=== PATIENT | male | born 1960 | race African-American/Black ===

== ENCOUNTER 2017-07-04 00:36 | Observation (INO) | payer OTHER ==
[2017-07-04] MEDS ORDERED: Naloxone HCl 2 mg/2 ml Syringe ONE (00:37)
[2017-07-04 01:06] LABS: Hemoglobin 16.2 g/dL (14.0-18.0); Mean Corpuscular HGB CONC 33.9 g/dL (32.0-36.0); Red Blood Cell (RBC) Count 4.37 mill/uL (4.70-6.10); White Blood Cell (WBC) Count 7.6 thou/uL (4.8-10.8)
[2017-07-04 01:15] LABS: CK (CPK) 96 U/L (30-200); Lipase 46 U/L (8-78)
[2017-07-04 01:17] LABS: ALT (SGPT) 52 U/L (8-55); AST (SGOT) 73 U/L (5-34); Albumin 3.6 g/dL (3.5-5.0); Alcohol 198 mg/dL (Less than 10); Alkaline Phosphatase 100 U/L (40-150); Anion Gap 13 mmol/L (10-20); BUN (Urea Nitrogen) 7 mg/dL (8.4-25.7); Bilirubin, Total 0.5 mg/dL (0.2-1.2); Calc. Creatinine Clearance 0 mL/min (70-130); Carbon Dioxide 23 mmol/L (22-29); Chloride 103 mmol/L (98-107); Estimated GFR-MDRD Greater than 90; Globulin 4.3 g/dL (2.4-3.5); Glucose 118 mg/dL (70-105); Potassium 3.8 mmol/L (3.5-5.1); Protein, Total 7.9 g/dL (6.0-8.3); Salicylate Less than 8.0 mg/dL (15.0-30.0); Sodium 135 mmol/L (136-145)
[2017-07-04 01:18] LABS: Lactic Acid 1.2 mmol/L (0.5-2.2)
[2017-07-04] MEDS ORDERED: Lorazepam 2 MG/ML VIAL ONE ×2 (01:20→08:54)
[2017-07-04 01:24] LABS: Eosinophils 3 % (0-10); Lymphocytes 43 % (21-51); MDiff Complete? YES; Macrocytosis SLIGHT = 6-15 cells (100X) (0-5/hpf); Mean Platelet Volume 9.2 fL (7.4-10.4); Monocytes 4 % (0-10); Neutrophil 50 % (42-75); Platelet Clumps SLIGHT; Platelet Count 139 thou/uL (130-400)
[2017-07-04 01:25] LABS: CKMB 1.4 ng/mL (0-6.6); Troponin I Less than 0.010 ng/mL (< 0.028)
[2017-07-04 01:32] LABS: Bilirubin Negative (Negative); Blood, Urine Negative (Negative); Clarity CLEAR (Clear); Glucose, Urine (Dipstick) 100 mg/dL (Negative); Leukocyte Negative (Negative); Nitrite Negative (Negative); Protein, Urine (Dipstick) Negative (Neg-Trace); Specific Gravity, Urine 1.012 (1.002-1.036); Urobilinogen 0.2 mg/dL (0.2-1.0); pH, Urine 5.5 (5.0-9.0)
[2017-07-04 01:38] LABS: Base Excess-Venous -1.7 mmol/L (0 (+/- 2.5)); Bicarbonate (HCO3v) 25.2 mmol/L (1.0-85.0); CO2 Tension (PvCO2) 49.3 mmHg (41.0-51.0); Calcium, Ionized 1.02 mmol/L (1.12-1.32); Hemoglobin - Calc 16.7 g/dL (12.0-18.0); O2 Tension (PvO2) 37.6 mmHg (35.0-45.0); Potassium 4.1 mmol/L (3.4-4.7); T. Carbon Dioxide 26.7 mmol/L (1.0-85.0); pH (Venous) 7.317 (7.35-7.45)
[2017-07-04 01:46] LABS: Amphetamine Not Detected (NotDetected); Barbiturates Screen Not Detected (NotDetected); Benzodiazepine Screen Not Detected (NotDetected); Cocaine Metabolite Screen Not Detected (NotDetected); Medtox Control Line Valid? VALID (VALID); Medtox Reader # READER 4; Methadone Not Detected (NotDetected); Methamphetamine Not Detected (NotDetected); Opiate Screen Not Detected (NotDetected); Oxycodone Screen Not Detected (NotDetected); Phencyclidine (PCP) Detected (NotDetected); THC/Cannabinoid Screen Not Detected (NotDetected); Tricyclic Screen Not Detected (NotDetected)
[2017-07-04] MEDS ORDERED: Lorazepam 2 MG/ML VIAL SLOW IVP PRN (03:51)
[2017-07-04] MEDS ORDERED: Lorazepam 0.5 MG TAB PO PRN (03:51)
--- NOTE | 2017-07-04 05:36 | HP ---
DATE OF ADMISSION: 07/04/2017 TIME OF SERVICE: 0415. PRIMARY CARE PHYSICIAN: Unknown. The patient currently has a toxic and metabolic encephalopathy and this is his first visit here. We have no records. He is unable to tell me who his primary doctor i s. He is implied to be a full code until we talk to family members. CHIEF COMPLAINT: Overdose. HISTORY OF PRESENT ILLNESS: Mr. Angeles is a 57-year-old gentleman with an unknown past history who a pparently has access to olanzapine. EMS was called by the family as they felt that he had taken abou t 20 of his olanzapine 20 mg tablets. He was found on the porch without a shirt in the cool air and was somewhat obtunded. He was hypothermic on initial evaluation and transported here. He did smell like alcohol and does have a psychiatric history. Calculated [place] coma scale score was 9. In the ER he was given Narcan, Ativan and 1 liter normal saline, we were subsequently called for admi ssion. Mental status was improving, he was breathing okay, protecting his airway better. We were called to admit. PAST MEDICAL HISTORY: Unknown. PAST SURGICAL HISTORY: Unknown. HOME MEDICATIONS: Unknown. ALLERGIES: NKDA. FAMILY HISTORY: Not obtainable. SOCIAL HISTORY: Unknown, unsure of tobacco use. REVIEW OF SYSTEMS: A 10-point review of systems was attempted. The patient was too groggy to be abl e to answer questions. PHYSICAL EXAMINATION: VITAL SIGNS: Temperature is 93.7, pulse 81, blood pressure 191/102, respiratory rate 20, satting 94% on room air. GENERAL: He is sedate. He is not sedated. He is difficult to arouse. He does respond to some verb al, but most tactile stimuli. HEENT: Head is normocephalic and atraumatic. Pupils are 2 mm and minimally reactive. There is no b lown pupils. He has no wheeze, rales or rhonchi. Mucous membranes are moist. There is no visible l esion or thrush. NECK: Supple. He has no lymphadenopathy, no JVD. No thyromegaly. He had normal carotid upstrokes. I did not appreciate any bruits. LUNGS: Clear. No wheezing, rales or rhonchi. There is good air movement. Symmetrical chest excurs ion. CARDIOVASCULAR: Normal S1, S2. He does have a faint holosystolic murmur versus a quiet systolic eje ction murmur that I can distinguish. These appear to be at the right upper sternal border. ABDOMEN: Soft. It is nontender, nondistended, no mass or organomegaly. EXTREMITIES: No cyanosis, clubbing with trace edema in the bilateral extremities. SKIN: Warm, moist and well perfused. No rashes, no lesions, no jaundice. MUSCULOSKELETAL: Large joints appear normal. No evidence of inflammation or palpable effusions. LABORATORY DATA: Sodium 135, potassium 3.8, chloride 103, bicarbonate 23, BUN 7, creatinine 0.78, gl ucose of 118. Liver function normal except for ALT around 73. CBC showed a white count of 7.6, hemoglobin 16.2, hematocrit of 47.3, platelet count is 139,000. The re is a fairly normal differential with 56% bands, 43% lymphocytes. Chest x-ray, CT of the brain was negative. A CT scan of the chest with contrast was unrevealing. ASSESSMENT AND PLAN: 1. Intentional overdose with olanzapine. The patient was placed on suicide precautions with a sitte r. We will watch him over the next 6-12 hours as he awakens and is medically clear we will ask [facility] to evaluate. 2. Metabolic encephalopathy secondary to overdose. 3. Toxins of encephalopathy secondary to olanzapine overdose. No specific antidote necessary. We w ill support him both respiratory and cardiac standpoint while these work their way out of the system.
[2017-07-04] MEDS ORDERED: D5 1/2 NS w/20 mEq KCL 1,000 ML ONE (06:43)
[2017-07-04] MEDS ORDERED: Acetaminophen 325 MG TAB PO PRN (07:53)
[2017-07-04] MEDS ORDERED: Ondansetron ODT 4 MG TAB PO PRN (07:53)
[2017-07-04] MEDS ORDERED: Dextrose 5% in Water 1,000 ML IV PRN (07:53)
[2017-07-04] MEDS ORDERED: Ondansetron HCl/PF 4 MG/2 ML Vial IVP PRN (07:53)
[2017-07-04] MEDS ORDERED: HumaLOG 300 UNITS/3 ML VIAL SC PRN (07:53)
[2017-07-04] MEDS ORDERED: Dextrose 50% Abboject 50 ML SYRINGE SLOW IVP PRN (07:53)
--- NOTE | 2017-07-04 08:03 | RAD ---
PORTABLE CHEST: HISTORY: Mental status change. FINDINGS/IMPRESSION: Mild cardiomegaly. Mild vascular engorgement. No focal infiltrate or significant effusion. POS: [facility]
--- NOTE | 2017-07-04 09:19 | CT ---
PRELIMINARY REPORT/[facility]/EMERGENTY AFTER-HOURS PROCEDURE CT Head Without Intravenous Contrast CLINICAL HISTORY: 57 years old, male; Pain; Headache; Patient HX: Additional history obtained from ems, called ems by wilian mccracken , decreased responsiveness. Ems states sitting on porch limited responsiveness. Dstick wnl. No signs of trauma. Outside w/ shirt off. Clinically smelled of ETOH per ems. No rashes. Reported by alber jaqueline to ems concern to taking x20 olanzapine. Prior mhmr history. Limited ros/hpi. ; Additional info: Patient was given ativan to help with agitation. TECHNIQUE: Axial computed tomography images of the head/brain without intravenous contrast. COMPARISON: No relevant prior studies available. FINDINGS: No definite acute skull fracture. Moderate mucosal thickening in the left maxillary sinus. Included p aranasal sinuses otherwise appear essentially clear. No acute intracranial hemorrhage or mass effect. Ventricle size is normal for age. There is mild, relatively symmetrical decreased attenuation in the periventricular white matter, like ly from microvascular disease. No definite acute infarct by CT. MRI could be more sensitive/specific for an acute infarct if clinica lly indicated. IMPRESSION: No acute intracranial bleed or mass effect. Changes of microvascular disease. No definite acute infarct by CT, see above. Paranasal sinus findings as discussed above. Thank you for allowing us to participate in the care of your patient. Dictated and Authenticated by: Geoffrey Perez MD 07/04/2017 2:34 AM Central Time ([place] & [place]) FINAL REPORT CT BRAIN WITHOUT CONTRAST: I agree with the preliminary report given by [facility]. POS: OFF
[2017-07-04] MEDS: Famotidine/PF 20 mg/2ml Vial SLOW IVP SCH (15:04)
[2017-07-04] MEDS: Sodium Chloride 0.9% 1,000 ML IV SCH ×2 (15:07→15:13)
[2017-07-04] MEDS: hydrALAZINE 20 MG/ML VIAL SLOW IVP PRN ×2 (18:37→23:56)
[2017-07-04] MEDS: Pantoprazole 40 MG VIAL IVP SCH ×3 (22:30→23:56)
[2017-07-05] MEDS: Famotidine/PF 20 mg/2ml Vial SLOW IVP SCH (00:14)
[2017-07-05] MEDS: Sodium Chloride 0.9% 1,000 ML IV SCH (01:21)
--- NOTE | 2017-07-05 04:09 | PDOC.EVN ---
Event Note - Event Note Event Note: RN called - Patient has 2 medical records.
[2017-07-05] MEDS: Pantoprazole 40 MG VIAL IVP SCH (10:06)
[2017-07-05 13:09] VITALS: TEMP 98.9
--- NOTE | 2017-07-05 14:47 | DIS ---
DATE OF ADMISSION: 07/04/2017 DATE OF DISCHARGE: 07/05/2017 DISCHARGE DIAGNOSES: 1. Olanzapine overdose, resolving. 2. Toxic metabolic encephalopathy secondary to #1, resolving. 3. PCP abuse. 4. Alcohol abuse. CONSULTATIONS: [facility] service. PERTINENT LABORATORY AND X-RAY FINDINGS: Basic metabolic profile within normal limits. AST 73, ALT 52, alkaline phosphatase 100. BNP 21.2, total CK of 96, troponin negative x1. Albumin 3.6, lipase 4 6, TSH 1.76. CBC showed a MCV of 109. Urine drug screen dated 07/04/2017, positive for phencyclidin e. Positive for alcohol level 198. CT of the brain without contrast dated 07/04/2017 showed no acut e intracranial process. Chronic microvascular ischemic changes noted. Portable chest x-ray dated showed mild cardiomegaly without acute process. HOSPITAL COURSE: Patient was admitted to the telemetry unit after initially presenting with altered mental status in the context of suspected Zyprexa overdose. The patient followed by [facility] service, pr escribed Cymbalta and Zyprexa, apparently taking an unknown amount of Zyprexa, as the patient states she wanted to go to sleep. The patient was monitored on the telemetry unit and noted with sinus tach ycardia. Remaining essentially sleeping through the hospital stay for approximately 30 hours. The p atient was given IV fluids and general supportive measures and remained clinically stable throughout the hospital course. The patient medically stabilized and was evaluated by [facility] service, as patient is an established patient of this [facility] system. A safety plan was established with the patient before discharge and the patient clinically stable and ready for discharge on 07/05/2017. I examined the p atient at the time of discharge and reviewed lab test and followup instructions. The patient is agre eable for a discharge plan and ready for discharge, 07/05/2017. DISCHARGE MEDICATIONS: 1. Zyprexa. 2. Cymbalta. FOLLOWUP: Patient will follow up with [facility] service per [facility] instructions. CONDITION ON DISCHARGE: Stable. ACTIVITY: Ad alex. DIET: Heart healthy. CODE STATUS: FULL. DISPOSITION: Home, 07/05/2017.
[2017-07-05] MEDS: hydrALAZINE 20 MG/ML VIAL SLOW IVP PRN (15:58)
[2017-07-05 16:35] VITALS: BP 166/88
== END 2017-07-05 16:40 | disposition home or self-care (01) ==
LOC: ERS 00:36 → EDBD 00:36 → ERHOLD 02:35 → 2NO 12:42
PROVIDERS: ADMIT Internal Medicine Infectious Disease; ATTEND Internal Medicine Infectious Disease
DX: F16.10 Hallucinogen abuse, uncomplicated; F10.10 Alcohol abuse, uncomplicated; G92 Toxic encephalopathy; Z79.899 Other long term (current) drug therapy; T43.591A Poisoning by other antipsychotics and neuroleptics, accidental (unintentional), initial encounter
CPT/HCPCS: 36416; 51701; 70450; 71045; 80053; 80306; 80307; 81003; 82140; 82330; 82550; 82553; 82803; 83605; 83690; 83880; 84443; 84484; 85025; 93005; 96360; 96361; 96374; 96375; 96376; A4216; C9113; G0378; J0360; J2060; J2310

== ENCOUNTER 2017-09-07 17:48 | Inpatient (IN) | payer OTHER ==
[2017-09-07 18:47] LABS: #Eosinphils 0.1 thou/uL (0.0-0.7); #Lymphocytes 2.6 thou/uL (1.20-3.40); #Monocytes 0.7 thou/uL (0.11-0.59); #Neutrophils 5.8 thou/uL (1.40-6.50); %Basophils 0.2 % (0.0-1.0); %Eosinophils 0.8 % (0.0-10.0); %Monocytes 7.5 % (0.0-10.0); %Neutrophils 63.5 % (42.0-75.0); Hemoglobin 16.8 g/dL (14.0-18.0); Mean Corpuscular HGB CONC 34.5 g/dL (32.0-36.0); Mean Corpuscular Hemoglobin 37.3 pg (27.0-31.0); Mean Platelet Volume 8.8 fL (7.4-10.4); Platelet Count 111 thou/uL (130-400); RBC Distribution Width 12.5 % (11.5-14.5); White Blood Cell (WBC) Count 9.1 thou/uL (4.8-10.8)
[2017-09-07 19:01] LABS: ALT (SGPT) 31 U/L (8-55); AST (SGOT) 34 U/L (5-34); Albumin 3.5 g/dL (3.5-5.0); Alkaline Phosphatase 91 U/L (40-150); Anion Gap 13 mmol/L (10-20); BUN (Urea Nitrogen) 8 mg/dL (8.4-25.7); Bilirubin, Total 1.1 mg/dL (0.2-1.2); CK (CPK) 88 U/L (30-200); Calc. Creatinine Clearance 0 mL/min (70-130); Calcium 9.2 mg/dL (7.8-10.44); Carbon Dioxide 22 mmol/L (22-29); Chloride 100 mmol/L (98-107); Estimated GFR-MDRD Greater than 90; Globulin 4.6 g/dL (2.4-3.5); Glucose 172 mg/dL (70-105); Potassium 3.2 mmol/L (3.5-5.1); Protein, Total 8.1 g/dL (6.0-8.3); Sodium 132 mmol/L (136-145)
[2017-09-07 19:01] LABS: CKMB 1.4 ng/mL (0-6.6); Troponin I Less than 0.010 ng/mL (< 0.028)
[2017-09-07 19:14] LABS: Lipase 1199 U/L (8-78)
--- NOTE | 2017-09-07 19:28 | RAD ---
ABDOMEN TWO VIEW WITH A ONE VIEW CHEST X-RAY 09/07/17 HISTORY: Sharp chest pain, abdominal pain, and back pain. COMPARISON: Chest radiograph 07/04/17. FINDINGS: The vascular engorgement has improved. No focal air space consolidation, pneumothorax or effusion. Th e aortic contour is normal. Height loss of L2 vertebral body is similar. Evidence of old pelvic trauma. No dilated air filled loops of large or small bowel. IMPRESSION: No acute intrathoracic or intra-abdominal abnormality. POS: [facility]
[2017-09-07] MEDS ORDERED: Ondansetron ODT 4 MG TAB ONE (19:30)
--- NOTE | 2017-09-07 19:38 | ULT ---
ULTRASOUND RIGHT UPPER QUADRANT 09/07/17 HISTORY: Abdominal pain. COMPARISON: Ultrasound 2017. The visualized portions of the pancreas are unremarkable. Common bile duct is normal. Increased hepat ic echotexture. No cholelithiasis or pericholecystic fluid. Gallbladder wall thickness is normal. Right kidney measures 10 x 5.2 x 5.4 cm without mass, hydronephrosis or abnormal calcifications. IMPRESSION: Increased hepatic echotexture suggesting steatosis. No evidence of cholecystitis. POS: [facility]
[2017-09-07 19:45] LABS: Bilirubin Small (Negative); Blood, Urine Negative (Negative); Clarity CLEAR (Clear); Glucose, Urine (Dipstick) >=1000 mg/dL (Negative); Leukocyte Negative (Negative); Nitrite Negative (Negative); Protein, Urine (Dipstick) 100 mg/dL (Neg-Trace); Specific Gravity, Urine 1.043 (1.002-1.036); Urobilinogen > or = 8.0 mg/dL (0.2-1.0)
[2017-09-07 19:48] LABS: Bacteria/HPF None Seen HPF (None Seen); Hyaline Casts/LPF 0-3 HYALINE CAST LPF (0-3 Hyaline); RBC/HPF 0-3 HPF (0-3); Squamous Epithelial 0-3 HPF (0-3); WBC/HPF 0-3 HPF (0-3)
[2017-09-07] MEDS ORDERED: MULTIVITAMINS IV ONE (20:45)
[2017-09-07] MEDS ORDERED: FOLIC ACID IV ONE (20:45)
[2017-09-07] MEDS ORDERED: THIAMINE HCL IV ONE (20:45)
[2017-09-07] MEDS ORDERED: [UNRECOGNIZED DRUG - OTHER] IV ONE (20:45)
[2017-09-07] MEDS ORDERED: Ondansetron HCl/PF 4 MG/2 ML Vial IVP PRN (21:19)
[2017-09-07] MEDS ORDERED: Ondansetron ODT 4 MG TAB SL PRN (21:19)
[2017-09-07] MEDS: Sodium Chloride 0.9% 1,000 ML IV SCH (21:33)
[2017-09-07 21:59] VITALS: BMI 34.1
[2017-09-08] MEDS: Sodium Chloride 0.9% 1,000 ML IV SCH (04:03)
[2017-09-08 05:12] LABS: ALT (SGPT) 24 U/L (8-55); AST (SGOT) 27 U/L (5-34); Alkaline Phosphatase 77 U/L (40-150); Anion Gap 10 mmol/L (10-20); BUN (Urea Nitrogen) 7 mg/dL (8.4-25.7); Bilirubin, Total 1.5 mg/dL (0.2-1.2); Calc. Creatinine Clearance 157 mL/min (70-130); Calcium 8.2 mg/dL (7.8-10.44); Carbon Dioxide 23 mmol/L (22-29); Chloride 103 mmol/L (98-107); Estimated GFR-MDRD Greater than 90; Globulin 3.8 g/dL (2.4-3.5); Glucose 147 mg/dL (70-105); Potassium 3.7 mmol/L (3.5-5.1); Protein, Total 6.8 g/dL (6.0-8.3); Sodium 132 mmol/L (136-145)
--- NOTE | 2017-09-08 05:26 | HP ---
CHIEF COMPLAINT: Abdominal pain. HISTORY OF PRESENT ILLNESS: Patient is a 57-year-old male with past medical history of alcohol abuse , chronic hepatitis C, polysubstance abuse, and a history of bipolar, who presented to the hospital w ith complaints of abdominal pain. Patient stated that he has been having abdominal pain for the past 3 days. Patient states that he took an Aleve. He took 2 pills, which did not help his pain. He to ok Maalox and then Pepto-Bismol still did not help this pain. Patient stated he was nauseated; howev er, only had some dry heaving. No vomiting, no diarrhea. Patient stated that he has been trying to eat; however, has not been able to eat or keep anything down. Patient stated that he normally drinks a 32 ounce of beer every 2 days. He tried to drink it yesterday; however, was unable to finish his first beer. Patient states that his pain was around the epigastric area was a sharp pain, which radi ated to his back. Denies any fevers or chills. Denies any chest pressure or shortness of breath. PAST MEDICAL HISTORY: 1. Chronic alcohol use, hepatitis C. 2. Bipolar disorder. 3. Polysubstance abuse. 4. Patient has had also history of pancreatitis and hypomagnesemia in the past. PAST SURGICAL HISTORY: Right wrist surgery. ALLERGIES: He has no known drug allergies. FAMILY HISTORY: Positive for heart disease and diabetes. CURRENT MEDICATIONS: This is taken from his last discharge summary. Patient's discharge medications per reconciliation is patient takes thiamine to 100 mg daily, folic acid 1 daily, Pepcid 20 mg b.i.d ., multivitamin 1 daily. SOCIAL HISTORY: Patient states that he smokes a pack a day. Drinks about, he told me a 32 ounces ev raghavendra 2 days and said he abuses marijuana, however, states that he has not used any cocaine. REVIEW OF SYSTEMS: All negative except for the ones mentioned above in the HPI. PHYSICAL EXAMINATION: VITAL SIGNS: Temperature of 98.2, 69, 20, 94% on room air, blood pressure 181/89. GENERAL: He is awake, alert, oriented x3, does not appear in any distress. HEENT: Normocephalic, atraumatic. Patient's voice appears to be very hoarse. As stated oral mucous membranes are a little bit on the raw stock drier tender side. CARDIOVASCULAR: S1, S2 present. No murmurs, rubs, or gallops. LUNGS: Clear per auscultation, rhonchi, wheezes noted. ABDOMEN: Soft, bowel sounds present x2. Mild tenderness upon palpation to epigastric area and right upper quadrant and also bilateral lower quadrant pain. EXTREMITIES: No edema. Pedal pulses are present x2. NEUROLOGIC: Alert and oriented x3. No focal deficits noted. PSYCHIATRIC: His mood and affect appears to be normal. LABORATORY DATA: Results are as the following: He has a white count of 9.1, hemoglobin of 16.8, hem atocrit of 48.6. His platelets are 111. Chemistry: Sodium of 132, potassium of 3.2. His bicarbona te is 13, BUN of 8, creatinine of 0.7. His LFTs are completely normal. His mag is 1.8. Alkaline ph osphatase are also normal. Troponin x1 is negative and his lipase is 1199. Patient had a right uppe r quadrant ultrasound done in the ER, which indicated no acute cholecystitis or just indicated increa se hepatic echotexture suggesting of steatosis. Patient also had an acute abdominal series, which in dicated no acute intrathoracic or intra-abdominal abnormalities. ASSESSMENT AND PLAN: Patient is a 57-year-old male who presents to the hospital with abdominal pain. 1. Acute pancreatitis. Patient has classic symptoms of epigastric pain radiating to his back, has b een also having some nausea. We will start the patient on some pain meds also IV hydration. We will check a CRP. Keep patient n.p.o. for now. The patient has been educated on not drinking alcohol. 2. Hypokalemia. Patient is currently getting a banana bag. We will continue to monitor. 3. Alcohol use or abuse. We will put patient on the ASE protocol and also order p.r.n. Ativan just in case. 4. Thrombocytopenia appears that is patient's baseline. I will continue to monitor. 5. Deep venous thrombosis prophylaxis. We will put patient on subcutaneous heparin. Also, we will monitor platelets since patient's baseline is low, but patient has been notified about the liver arana ges and has been advised to stop drinking alcohol.
[2017-09-08 05:55] LABS: #Eosinphils 0.1 thou/uL (0.0-0.7); #Lymphocytes 3.4 thou/uL (1.20-3.40); #Monocytes 0.6 thou/uL (0.11-0.59); #Neutrophils 4.4 thou/uL (1.40-6.50); %Basophils 0.5 % (0.0-1.0); %Eosinophils 1.6 % (0.0-10.0); %Lymphocytes 39.9 % (21.0-51.0); %Monocytes 6.7 % (0.0-10.0); %Neutrophils 51.2 % (42.0-75.0); Hemoglobin 15.3 g/dL (14.0-18.0); MDiff Complete? YES; Mean Corpuscular HGB CONC 33.9 g/dL (32.0-36.0); Mean Corpuscular Hemoglobin 36.7 pg (27.0-31.0); Mean Platelet Volume 8.1 fL (7.4-10.4); PLT Morphology Comment Appears Decreased; Platelet Clumps MARKED; Platelet Count 101 thou/uL (130-400); RBC Distribution Width 12.7 % (11.5-14.5); Red Blood Cell (RBC) Count 4.18 mill/uL (4.70-6.10); White Blood Cell (WBC) Count 8.5 thou/uL (4.8-10.8)
[2017-09-08] MEDS ORDERED: Ondansetron HCl/PF 4 MG/2 ML Vial IVP PRN (07:03)
[2017-09-08] MEDS ORDERED: Loratadine 10 MG TAB PO PRN (07:03)
[2017-09-08] MEDS ORDERED: Lorazepam 1 MG TAB PO PRN (07:03)
[2017-09-08] MEDS ORDERED: Artificial Tears 18 DROP/0.9 ML EA EYE PRN (07:03)
[2017-09-08] MEDS ORDERED: Loperamide HCl 2 MG CAP PO PRN (07:03)
[2017-09-08] MEDS ORDERED: Ondansetron ODT 4 MG TAB PO PRN (07:03)
[2017-09-08] MEDS ORDERED: Senokot 8.6 MG TAB PO PRN (07:03)
[2017-09-08] MEDS ORDERED: Acetaminophen 325 MG TAB PO PRN (07:03)
[2017-09-08] MEDS ORDERED: Chloraseptic Spray 180 ml Bottle PO PRN (07:03)
[2017-09-08] MEDS ORDERED: Eucerin (Mineral Oil/Petrolatum,White) 30 gm Jar TOP PRN (07:03)
[2017-09-08] MEDS ORDERED: Lorazepam 2 MG/ML VIAL SLOW IVP PRN (07:03)
[2017-09-08] MEDS ORDERED: Diabetic Tussin 200 MG/10 ML UDCUP PO PRN (07:03)
[2017-09-08] MEDS ORDERED: hydrALAZINE 20 MG/ML VIAL SLOW IVP PRN (07:03)
[2017-09-08] MEDS ORDERED: Mag-Al 1200 mg/1200 mg/30 ML UDCUP PO PRN (07:03)
[2017-09-08] MEDS ORDERED: Sodium Chloride 0.65% Nasal 44 ML BOT EA NARE PRN (07:03)
[2017-09-08] MEDS ORDERED: Milk Of Magnesia 30 ML UDCUP PO PRN (07:03)
[2017-09-08] MEDS ORDERED: HYDROcodone/Acetaminophen 5/325 mg Tablet PO PRN (07:03)
[2017-09-08] MEDS ORDERED: Morphine 4 MG/ML Carpuject SLOW IVP PRN (07:04)
[2017-09-08] MEDS: Folic Acid 1 MG TAB PO SCH (08:25)
[2017-09-08] MEDS: Nicotine 21 MG PATCH TD SCH (08:25)
[2017-09-08] MEDS ORDERED: Heparin 5,000 UNITS/ML VIAL SC SCH (09:00)
[2017-09-08] MEDS: Famotidine/PF 20 mg/2ml Vial SLOW IVP SCH (09:21)
--- NOTE | 2017-09-08 09:29 | PDOC.PN ---
- Subjective Encounter Start Date: 09/08/17 Encounter Start Time: 08:20 -: old records requested/rev Patient seen and examined for pancreatitis, he has epigastric abdominal pain, No overnight events - Objective Resuscitation Status: Resuscitation Status FULL:Full Resuscitation MAR Reviewed: Yes Vital Signs & Weight: Vital Signs (12 hours) Temp Pulse Resp BP Pulse Ox 09/08/17 07:56 97.6 F 71 18 159/77 H 93 L 09/08/17 04:00 97.9 F 73 16 136/81 93 L 09/08/17 00:00 97.9 F 67 16 152/81 H 93 L Weight Weight 205 lb 1.6 oz I&O: 09/07/17 09/08/17 09/09/17 06:59 06:59 06:59 Intake Total 1219 Output Total 300 Balance 919 Result Diagrams: 09/08/17 04:02 09/08/17 04:02 Radiology Reviewed by me: Yes (us abdomen) Phys Exam - Physical Examination Constitutional: NAD HEENT: PERRLA, moist MMs, sclera anicteric Neck: no JVD, supple Respiratory: no wheezing, no rales, no rhonchi Cardiovascular: RRR, no significant murmur, no rub Gastrointestinal: soft, non-tender, no distention, positive bowel sounds Musculoskeletal: no edema, pulses present Neurological: non-focal, normal sensation, moves all 4 limbs Lymphatic: no nodes Psychiatric: normal affect, A&O x 3 Skin: no rash, normal turgor Dx/Plan (1) Pancreatitis, alcoholic, acute Code(s): K85.2 - ALCOHOL INDUCED ACUTE PANCREATITIS * DO NOT USE * Status: Acute Qualifiers: Comment: (2) Hypokalemia Code(s): E87.6 - HYPOKALEMIA Status: Acute (3) Hyponatremia Code(s): E87.1 - HYPO-OSMOLALITY AND HYPONATREMIA Status: Acute (4) Anxiety and depression Code(s): F41.9 - ANXIETY DISORDER, UNSPECIFIED; F32.9 - MAJOR DEPRESSIVE DISORDER, SINGLE EPISODE, UNSPECIFIED Status: Chronic (5) Bipolar disorder Code(s): F31.9 - BIPOLAR DISORDER, UNSPECIFIED Status: Chronic (6) Chronic hepatitis C Code(s): B18.2 - CHRONIC VIRAL HEPATITIS C Status: Chronic (7) Macrocytosis Code(s): D75.89 - OTHER SPECIFIED DISEASES OF BLOOD AND BLOOD-FORMING ORGANS Status: Chronic (8) Obesity (BMI 30.0-34.9) Code(s): E66.9 - OBESITY, UNSPECIFIED Status: Chronic (9) Polysubstance abuse Code(s): F19.10 - OTHER PSYCHOACTIVE SUBSTANCE ABUSE, UNCOMPLICATED Status: Chronic (10) Thrombocytopenia Code(s): D69.6 - THROMBOCYTOPENIA, UNSPECIFIED Status: Chronic - Plan cont current plan of care * Ice chips ok * keep NPO * continue IVF 1/2 NS with KCL at 125 ml per hour * continue morphin for pain control * tomorrow will repeat labs and then decide about diet advancement * counselled to avoid alcohol abuse * medication reviewed as below * symptomatic treatment. * watch for alcohol withdrawl Review of Systems - Review of Systems Constitutional: negative: fever, chills, sweats, weakness, malaise, other Eyes: negative: Pain, Vision Change, Conjunctivae Inflammation, Eyelid Inflammation, Redness, Other ENT: negative: Ear Pain, Ear Discharge, Nose Pain, Nose Discharge, Nose Congestion, Mouth Pain, Mouth Swelling, Throat Pain, Throat Swelling, Other Respiratory: negative: Cough, Dry, Shortness of Breath, Hemoptysis, SOB with Excertion, Pleuritic Pain, Sputum, Wheezing Cardiovascular: negative: chest pain, palpitations, orthopnea, paroxysmal nocturnal dyspnea, edema, light headedness, other Gastrointestinal: Abdominal Pain. negative: Nausea, Vomiting, Diarrhea, Constipation, Melena, Hematochezia, Other Genitourinary: negative: Dysuria, Frequency, Incontinence, Hematuria, Retention , Other Musculoskeletal: negative: Neck Pain, Shoulder Pain, Arm Pain, Back Pain, Hand Pain, Leg Pain, Foot Pain, Other Skin: negative: Rash, Lesions, Thiago, Bruising, Other - Medications/Allergies Allergies/Adverse Reactions: Allergies Allergy/AdvReac Type Severity Reaction Status Date / Time No Known Drug Allergies Allergy Verified 06/03/16 00:28 Medications: Current Medications Acetaminophen (Tylenol) 650 mg PO Q4H PRN PRN Reason: Headache/Fever or Mild Pain Hydrocodone Bitart/Acetaminophen ([place] 5/325) 1 tab PO Q4H PRN PRN Reason: Moderate Pain (4-6) Al Hydroxide/Mg Hydroxide (Maalox) 15 ml PO Q4H PRN PRN Reason: Heartburn or Indigestion Artificial Tears (Tears Naturale) 0 drop EA EYE PRN PRN PRN Reason: Dry Eyes Famotidine (Pepcid) 20 mg SLOW IVP DAILY [facility] Last Admin: 09/08/17 09:21 Dose: 20 mg Folic Acid (Folvite) 1 mg PO DAILY [facility] Last Admin: 09/08/17 08:25 Dose: 1 mg Guaifenesin (Robitussin Sf) 200 mg PO Q4H PRN PRN Reason: Cough Hydralazine HCl (Apresoline) 10 mg SLOW IVP Q4H PRN PRN Reason: Systolic BP > 180 Thiamine HCl 100 mg/ Sodium (Chloride) 51 mls @ 100 mls/hr IVPB Q24HR [facility] Last Admin: 09/08/17 09:21 Dose: 51 mls Loperamide HCl (Imodium) 2 mg PO PRN PRN PRN Reason: Diarrhea/Loose Stools Loratadine (Claritin) 10 mg PO DAILYPRN PRN PRN Reason: Sinus Symptoms Lorazepam (Ativan) 1 mg PO Q4H PRN PRN Reason: Anxiety/Agitation Lorazepam (Ativan) 1 mg SLOW IVP Q4H PRN PRN Reason: Anxiety/Agitation Magnesium Hydroxide (Milk Of Magnesium) 30 ml PO DAILYPRN PRN PRN Reason: Constipation Mineral Oil/White Petrolatum (Eucerin Cream) 0 gm TOP BIDPRN PRN PRN Reason: Dry Skin Morphine Sulfate (Morphine) 4 mg SLOW IVP Q4H PRN PRN Reason: Pain Last Admin: 09/08/17 08:29 Dose: 4 mg Nicotine (Nicoderm Patch) 21 mg TD DAILY [facility] Last Admin: 09/08/17 08:25 Dose: Not Given Ondansetron HCl (Zofran Odt) 4 mg PO Q6H PRN PRN Reason: Nausea/Vomiting Ondansetron HCl (Zofran) 4 mg IVP Q6H PRN PRN Reason: Nausea/Vomiting Phenol (Chloraseptic [place] 180 Ml Bot) 0 ml PO PRN PRN PRN Reason: Sore Throat Last Admin: 09/08/17 09:20 Dose: 1 spr Senna (Senokot) 2 tab PO HSPRN PRN PRN Reason: Constipation Sodium Chloride ([place] Nasal [place] 0.65%) 0 ml EA NARE QIDPRN PRN PRN Reason: Nasal Congestion Sodium Chloride (Flush - Normal Saline) 10 ml IVF Q12HR [facility] Last Admin: 09/08/17 08:25 Dose: Not Given Sodium Chloride (Flush - Normal Saline) 10 ml IVF PRN PRN PRN Reason: Saline Flush
[2017-09-08] MEDS: 1/2 NS w/KCL 20 mEq 1,000 ML IV SCH ×3 (11:09→19:26)
[2017-09-09] MEDS: 1/2 NS w/KCL 20 mEq 1,000 ML IV SCH (03:29)
[2017-09-09 04:38] LABS: ALT (SGPT) 24 U/L (8-55); AST (SGOT) 34 U/L (5-34); Alkaline Phosphatase 75 U/L (40-150); Anion Gap 9 mmol/L (10-20); BUN (Urea Nitrogen) 9 mg/dL (8.4-25.7); Bilirubin, Total 1.8 mg/dL (0.2-1.2); CRP (Inflammatory) 0.62 mg/dL (= or < 0.5); Calc. Creatinine Clearance 160 mL/min (70-130); Calcium 8.5 mg/dL (7.8-10.44); Carbon Dioxide 23 mmol/L (22-29); Chloride 102 mmol/L (98-107); Estimated GFR-MDRD Greater than 90; Globulin 3.9 g/dL (2.4-3.5); Glucose 77 mg/dL (70-105); Magnesium 1.7 mg/dL (1.6-2.6); Phosphorus 2.8 mg/dL (2.3-4.7); Potassium 4.3 mmol/L (3.5-5.1); Protein, Total 6.9 g/dL (6.0-8.3); Sodium 130 mmol/L (136-145)
[2017-09-09 05:57] LABS: #Basophils 0.1 thou/uL (0.0-0.2); #Eosinphils 0.1 thou/uL (0.0-0.7); #Lymphocytes 2.9 thou/uL (1.20-3.40); #Monocytes 0.6 thou/uL (0.11-0.59); #Neutrophils 3.4 thou/uL (1.40-6.50); %Eosinophils 1.8 % (0.0-10.0); %Lymphocytes 41.2 % (21.0-51.0); %Monocytes 8.3 % (0.0-10.0); %Neutrophils 47.8 % (42.0-75.0); Hemoglobin 14.7 g/dL (14.0-18.0); MDiff Complete? YES; Macrocytosis SLIGHT = 6-15 cells (100X) (0-5/hpf); Mean Corpuscular HGB CONC 35.1 g/dL (32.0-36.0); Mean Corpuscular Hemoglobin 38.5 pg (27.0-31.0); Mean Platelet Volume 8.5 fL (7.4-10.4); PLT Morphology Comment PLT clumps seen-LOW; Platelet Clumps MODERATE; RBC Distribution Width 12.6 % (11.5-14.5); Red Blood Cell (RBC) Count 3.82 mill/uL (4.70-6.10)
[2017-09-09] MEDS: Sodium Chloride 0.9% 1,000 ML IV SCH ×2 (08:19→20:07)
[2017-09-09] MEDS: DULoxetine 60 MG CAP PO SCH (08:20)
[2017-09-09] MEDS: Cyanocobalamin (Vitamin B-12) 1,000 MCG TAB PO SCH (08:20)
[2017-09-09] MEDS: Folic Acid 1 MG TAB PO SCH (08:21)
[2017-09-09] MEDS: Multivitamin W/ Minerals 1 TAB PO SCH (08:22)
[2017-09-09] MEDS: Nicotine 21 MG PATCH TD SCH (08:23)
--- NOTE | 2017-09-09 08:50 | PDOC.PN ---
- Subjective Encounter Start Date: 09/09/17 Encounter Start Time: 08:00 Patient seen and examined for pancreatitis. No new complaints. No overnight events - Objective Resuscitation Status: Resuscitation Status FULL:Full Resuscitation MAR Reviewed: Yes Vital Signs & Weight: Vital Signs (12 hours) Temp Pulse Resp BP BP Pulse Ox 09/09/17 07:20 97.5 F L 62 16 163/78 H 93 L 09/09/17 04:08 97.8 F 65 18 152/79 H 152/79 H 92 L 09/09/17 00:25 98 F 65 18 171/81 H 93 L 09/09/17 00:02 171/81 H Weight Admit Weight 205 lb 1.6 oz Weight 205 lb 1.6 oz I&O: 09/08/17 09/09/17 09/10/17 06:59 06:59 06:59 Intake Total 1219 3077 Output Total 300 350 Balance 919 5997 Result Diagrams: 09/09/17 03:40 09/09/17 03:40 Phys Exam - Physical Examination Constitutional: NAD HEENT: PERRLA, moist MMs, sclera anicteric Neck: no JVD, supple Respiratory: no wheezing, no rales, no rhonchi Cardiovascular: RRR, no significant murmur, no rub Gastrointestinal: soft, non-tender, no distention, positive bowel sounds Musculoskeletal: no edema, pulses present Neurological: non-focal, normal sensation, moves all 4 limbs Psychiatric: normal affect, A&O x 3 Skin: no rash, normal turgor Dx/Plan (1) Pancreatitis, alcoholic, acute Code(s): K85.2 - ALCOHOL INDUCED ACUTE PANCREATITIS * DO NOT USE * Status: Acute Qualifiers: Comment: (2) Hypokalemia Code(s): E87.6 - HYPOKALEMIA Status: Acute (3) Hyponatremia Code(s): E87.1 - HYPO-OSMOLALITY AND HYPONATREMIA Status: Acute (4) Anxiety and depression Code(s): F41.9 - ANXIETY DISORDER, UNSPECIFIED; F32.9 - MAJOR DEPRESSIVE DISORDER, SINGLE EPISODE, UNSPECIFIED Status: Chronic (5) Bipolar disorder Code(s): F31.9 - BIPOLAR DISORDER, UNSPECIFIED Status: Chronic (6) Chronic hepatitis C Code(s): B18.2 - CHRONIC VIRAL HEPATITIS C Status: Chronic (7) Macrocytosis Code(s): D75.89 - OTHER SPECIFIED DISEASES OF BLOOD AND BLOOD-FORMING ORGANS Status: Chronic (8) Obesity (BMI 30.0-34.9) Code(s): E66.9 - OBESITY, UNSPECIFIED Status: Chronic (9) Polysubstance abuse Code(s): F19.10 - OTHER PSYCHOACTIVE SUBSTANCE ABUSE, UNCOMPLICATED Status: Chronic (10) Thrombocytopenia Code(s): D69.6 - THROMBOCYTOPENIA, UNSPECIFIED Status: Chronic - Plan cont current plan of care * change IVF NS at 75 ml per hour * advance diet as tolerated today * pt is improving * expecting discharge tomorrow * medication reviewed as below * symptomatic treatment * pain controlled * ambulate as tolerated. Review of Systems - Review of Systems ENT: negative: Ear Pain, Ear Discharge, Nose Pain, Nose Discharge, Nose Congestion, Mouth Pain, Mouth Swelling, Throat Pain, Throat Swelling, Other Respiratory: negative: Cough, Dry, Shortness of Breath, Hemoptysis, SOB with Excertion, Pleuritic Pain, Sputum, Wheezing Cardiovascular: negative: chest pain, palpitations, orthopnea, paroxysmal nocturnal dyspnea, edema, light headedness, other Gastrointestinal: negative: Nausea, Vomiting, Abdominal Pain, Diarrhea, Constipation, Melena, Hematochezia, Other Genitourinary: negative: Dysuria, Frequency, Incontinence, Hematuria, Retention , Other Musculoskeletal: negative: Neck Pain, Shoulder Pain, Arm Pain, Back Pain, Hand Pain, Leg Pain, Foot Pain, Other Skin: negative: Rash, Lesions, Thiago, Bruising, Other - Medications/Allergies Allergies/Adverse Reactions: Allergies Allergy/AdvReac Type Severity Reaction Status Date / Time No Known Drug Allergies Allergy Verified 06/03/16 00:28 Medications: Current Medications Acetaminophen (Tylenol) 650 mg PO Q4H PRN PRN Reason: Headache/Fever or Mild Pain Hydrocodone Bitart/Acetaminophen ([place] 5/325) 1 tab PO Q4H PRN PRN Reason: Moderate Pain (4-6) Al Hydroxide/Mg Hydroxide (Maalox) 15 ml PO Q4H PRN PRN Reason: Heartburn or Indigestion Artificial Tears (Tears Naturale) 0 drop EA EYE PRN PRN PRN Reason: Dry Eyes Cyanocobalamin (Vitamin B-12) 1,000 mcg PO DAILY [facility] Last Admin: 09/09/17 08:20 Dose: 1,000 mcg Duloxetine HCl (Cymbalta) 60 mg PO DAILY [facility] Last Admin: 09/09/17 08:20 Dose: 60 mg Famotidine (Pepcid) 20 mg SLOW IVP DAILY [facility] Last Admin: 09/08/17 09:21 Dose: 20 mg Folic Acid (Folvite) 1 mg PO DAILY [facility] Last Admin: 09/09/17 08:21 Dose: 1 mg Guaifenesin (Robitussin Sf) 200 mg PO Q4H PRN PRN Reason: Cough Hydralazine HCl (Apresoline) 10 mg SLOW IVP Q4H PRN PRN Reason: SBP GREATER THAN 160 Sodium Chloride (Normal Saline 0.9%) 1,000 mls @ 75 mls/hr IV .[id number] [facility] Last Admin: 09/09/17 08:19 Dose: 1,000 mls Iron/Minerals/Multivitamins (Theragran M) 1 tab PO DAILY [facility] Last Admin: 09/09/17 08:22 Dose: 1 tab Loperamide HCl (Imodium) 2 mg PO PRN PRN PRN Reason: Diarrhea/Loose Stools Loratadine (Claritin) 10 mg PO DAILYPRN PRN PRN Reason: Sinus Symptoms Lorazepam (Ativan) 1 mg PO Q4H PRN PRN Reason: Anxiety/Agitation Last Admin: 09/09/17 01:25 Dose: 1 mg Lorazepam (Ativan) 1 mg SLOW IVP Q4H PRN PRN Reason: Anxiety/Agitation Magnesium Hydroxide (Milk Of Magnesium) 30 ml PO DAILYPRN PRN PRN Reason: Constipation Mineral Oil/White Petrolatum (Eucerin Cream) 0 gm TOP BIDPRN PRN PRN Reason: Dry Skin Morphine Sulfate (Morphine) 4 mg SLOW IVP Q4H PRN PRN Reason: Pain Last Admin: 09/09/17 08:30 Dose: 4 mg Nicotine (Nicoderm Patch) 21 mg TD DAILY [facility] Last Admin: 09/09/17 08:23 Dose: Not Given Olanzapine (Zyprexa) 20 mg PO HS [facility] Last Admin: 09/09/17 08:21 Dose: 20 mg Ondansetron HCl (Zofran Odt) 4 mg PO Q6H PRN PRN Reason: Nausea/Vomiting Ondansetron HCl (Zofran) 4 mg IVP Q6H PRN PRN Reason: Nausea/Vomiting Phenol (Chloraseptic [place] 180 Ml Bot) 0 ml PO PRN PRN PRN Reason: Sore Throat Last Admin: 09/08/17 09:20 Dose: 1 spr Senna (Senokot) 2 tab PO HSPRN PRN PRN Reason: Constipation Sodium Chloride ([place] Nasal [place] 0.65%) 0 ml EA NARE QIDPRN PRN PRN Reason: Nasal Congestion Sodium Chloride (Flush - Normal Saline) 10 ml IVF Q12HR [facility] Last Admin: 09/09/17 08:23 Dose: Not Given Sodium Chloride (Flush - Normal Saline) 10 ml IVF PRN PRN PRN Reason: Saline Flush Thiamine HCl (Thiamine) 100 mg PO DAILY [facility] Last Admin: 09/09/17 08:21 Dose: 100 mg
[2017-09-09] MEDS ORDERED: Famotidine 20 MG TAB PO SCH (10:00)
[2017-09-09] MEDS: Famotidine/PF 20 mg/2ml Vial SLOW IVP SCH (11:08)
[2017-09-09] MEDS: hydrALAZINE 20 MG/ML VIAL SLOW IVP PRN (20:14)
[2017-09-09] MEDS ORDERED: OLANZapine 5 MG TAB PO SCH (21:00)
[2017-09-10] MEDS: hydrALAZINE 20 MG/ML VIAL SLOW IVP PRN ×2 (01:01→12:26)
[2017-09-10] MEDS: Sodium Chloride 0.9% 1,000 ML IV SCH ×2 (02:45→09:25)
[2017-09-10] MEDS ORDERED: Famotidine 20 MG TAB PO SCH (09:00)
[2017-09-10] MEDS: DULoxetine 60 MG CAP PO SCH (09:24)
[2017-09-10] MEDS: Folic Acid 1 MG TAB PO SCH (09:24)
[2017-09-10] MEDS: Cyanocobalamin (Vitamin B-12) 1,000 MCG TAB PO SCH (09:24)
[2017-09-10] MEDS: Nicotine 21 MG PATCH TD SCH (09:25)
[2017-09-10] MEDS: Multivitamin W/ Minerals 1 TAB PO SCH (09:25)
--- NOTE | 2017-09-10 10:31 | DIS ---
PRIMARY CARE PHYSICIAN: [facility] call admission. DATE OF ADMISSION: 09/07/2017 DATE OF DISCHARGE: 09/10/2017 DISCHARGE DISPOSITION: Home. PRIMARY DISCHARGE DIAGNOSES: 1. Acute and recurrent pancreatitis. 2. Hyponatremia and hypokalemia, corrected. SECONDARY DISCHARGE DIAGNOSES: Alcohol abuse, anxiety, and depression, obesity with BMI 34. PRIMARY PROCEDURES/OPERATIONS: None. RADIOLOGICAL INVESTIGATION: Acute abdomen series x-ray was unremarkable. Abdominal ultrasound showe d fatty liver. SIGNIFICANT LABORATORY DATA: WBC 7.0, hemoglobin 14.7, MCV 110, platelet 101. Sodium 130, potassium 4.3, chloride 102, BUN 9, creatinine 0.68, AST 34, ALT 24, alkaline phosphatase 75, albumin 3.0, lip ase 212. Cardiac enzymes negative. Urinalysis; glucosuria and proteinuria. Group A streptococcal s creen and culture negative. DISCHARGE MEDICATIONS: Folic acid 1 mg p.o. daily, thiamine 100 mg p.o. daily, and multivitamin 1 ta blet p.o. daily, Pepcid 20 mg p.o. b.i.d., multivitamin 1 tablet daily, olanzapine 20 mg p.o. at bedt norma, Cymbalta 60 mg p.o. daily. CONTRAINDICATIONS: None. CODE STATUS: FULL CODE. INPATIENT CONSULTANTS: None. ALLERGIES: No known drug allergy. DISCHARGE PLAN: Post hospital, the patient is instructed to follow up with primary care physician. HOSPITAL COURSE: The patient is a 57-year-old male who has alcohol abuse history wh o was admitted for acute pancreatitis. He presented with acute epigastric abdominal pain, which was radiating to back, associated with nausea. He was not having any vomiting. His abdominal pain was g etting worse with food. The patient had elevated lipase on admission. The lipase was 1199 and on discharge it was 212. The patient also had abnormal electrolytes that was replaced while in hospital. The patient was treated with narcotics for pain control, IV fluid for hydration and n.p.o. status and after improvement in hi s lipase and abdominal pain we started a clear liquid and advance diet to regular diet as tolerated. Low fat, low cholesterol diet discussed with the patient. The patient is given extensive counseling to avoid alcohol abuse as well as smoking. The patient is seen and examined at bedside today. Dietary instructions given. Counseling given for avoidance of tobacco and alcohol abuse. Healthy lifestyle measures discussed with the patient. This patient is medically stable for discharge with the above-mentioned medication.
--- NOTE | 2017-09-10 10:43 | PDOC.PN ---
- Subjective Encounter Start Date: 09/10/17 Encounter Start Time: 08:20 Patient seen and examined for pancreatitis. No new complaints. No overnight events - Objective Resuscitation Status: Resuscitation Status FULL:Full Resuscitation MAR Reviewed: Yes Vital Signs & Weight: Vital Signs (12 hours) Temp Pulse Resp BP BP Pulse Ox 09/10/17 07:50 98.0 F 95 18 149/81 H 93 L 09/10/17 04:24 97.9 F 97 20 163/81 H 95 09/10/17 04:00 163/81 H 09/10/17 01:59 83 167/80 H 09/10/17 01:01 65 09/10/17 00:47 98 F 65 18 178/88 H 95 09/10/17 00:00 98 F 65 18 178/88 H 95 Weight Admit Weight 205 lb 1.6 oz Weight 205 lb 1.6 oz I&O: 09/09/17 09/10/17 09/11/17 06:59 06:59 06:59 Intake Total 3077 2225 Output Total 350 1900 Balance 2727 325 Result Diagrams: 09/09/17 03:40 09/09/17 03:40 Additional Labs: Accuchecks 09/10/17 04:21 POC Glucose 107 Phys Exam - Physical Examination Constitutional: NAD HEENT: PERRLA, moist MMs, sclera anicteric Neck: no JVD, supple Respiratory: no wheezing, no rales, no rhonchi Cardiovascular: RRR, no significant murmur, no rub Gastrointestinal: soft, non-tender, no distention, positive bowel sounds Musculoskeletal: no edema, pulses present Neurological: non-focal, normal sensation, moves all 4 limbs Psychiatric: normal affect, A&O x 3 Skin: no rash, normal turgor Dx/Plan (1) Pancreatitis, alcoholic, acute Code(s): K85.2 - ALCOHOL INDUCED ACUTE PANCREATITIS * DO NOT USE * Status: Acute Qualifiers: Comment: (2) Hypokalemia Code(s): E87.6 - HYPOKALEMIA Status: Acute (3) Hyponatremia Code(s): E87.1 - HYPO-OSMOLALITY AND HYPONATREMIA Status: Acute (4) Anxiety and depression Code(s): F41.9 - ANXIETY DISORDER, UNSPECIFIED; F32.9 - MAJOR DEPRESSIVE DISORDER, SINGLE EPISODE, UNSPECIFIED Status: Chronic (5) Bipolar disorder Code(s): F31.9 - BIPOLAR DISORDER, UNSPECIFIED Status: Chronic (6) Chronic hepatitis C Code(s): B18.2 - CHRONIC VIRAL HEPATITIS C Status: Chronic (7) Macrocytosis Code(s): D75.89 - OTHER SPECIFIED DISEASES OF BLOOD AND BLOOD-FORMING ORGANS Status: Chronic (8) Obesity (BMI 30.0-34.9) Code(s): E66.9 - OBESITY, UNSPECIFIED Status: Chronic (9) Polysubstance abuse Code(s): F19.10 - OTHER PSYCHOACTIVE SUBSTANCE ABUSE, UNCOMPLICATED Status: Chronic (10) Thrombocytopenia Code(s): D69.6 - THROMBOCYTOPENIA, UNSPECIFIED Status: Chronic - Plan cont current plan of care * medication reviewed as below * symptomatic treatment * see my discharge lizetty. Review of Systems - Review of Systems Eyes: negative: Pain, Vision Change, Conjunctivae Inflammation, Eyelid Inflammation, Redness, Other ENT: negative: Ear Pain, Ear Discharge, Nose Pain, Nose Discharge, Nose Congestion, Mouth Pain, Mouth Swelling, Throat Pain, Throat Swelling, Other Respiratory: negative: Cough, Dry, Shortness of Breath, Hemoptysis, SOB with Excertion, Pleuritic Pain, Sputum, Wheezing Cardiovascular: negative: chest pain, palpitations, orthopnea, paroxysmal nocturnal dyspnea, edema, light headedness, other Gastrointestinal: negative: Nausea, Vomiting, Abdominal Pain, Diarrhea, Constipation, Melena, Hematochezia, Other Genitourinary: negative: Dysuria, Frequency, Incontinence, Hematuria, Retention , Other Musculoskeletal: negative: Neck Pain, Shoulder Pain, Arm Pain, Back Pain, Hand Pain, Leg Pain, Foot Pain, Other Skin: negative: Rash, Lesions, Thiago, Bruising, Other - Medications/Allergies Allergies/Adverse Reactions: Allergies Allergy/AdvReac Type Severity Reaction Status Date / Time No Known Drug Allergies Allergy Verified 06/03/16 00:28 Medications: Current Medications Acetaminophen (Tylenol) 650 mg PO Q4H PRN PRN Reason: Headache/Fever or Mild Pain Hydrocodone Bitart/Acetaminophen ([place] 5/325) 1 tab PO Q4H PRN PRN Reason: Moderate Pain (4-6) Al Hydroxide/Mg Hydroxide (Maalox) 15 ml PO Q4H PRN PRN Reason: Heartburn or Indigestion Artificial Tears (Tears Naturale) 0 drop EA EYE PRN PRN PRN Reason: Dry Eyes Cyanocobalamin (Vitamin B-12) 1,000 mcg PO DAILY [facility] Last Admin: 09/10/17 09:24 Dose: 1,000 mcg Duloxetine HCl (Cymbalta) 60 mg PO DAILY [facility] Last Admin: 09/10/17 09:24 Dose: 60 mg Famotidine (Pepcid) 20 mg PO DAILY [facility] Last Admin: 09/10/17 09:24 Dose: 20 mg Folic Acid (Folvite) 1 mg PO DAILY [facility] Last Admin: 09/10/17 09:24 Dose: 1 mg Guaifenesin (Robitussin Sf) 200 mg PO Q4H PRN PRN Reason: Cough Hydralazine HCl (Apresoline) 10 mg SLOW IVP Q4H PRN PRN Reason: SBP GREATER THAN 160 Last Admin: 09/10/17 01:01 Dose: 10 mg Sodium Chloride (Normal Saline 0.9%) 1,000 mls @ 75 mls/hr IV .[id number] [facility] Last Admin: 09/10/17 09:25 Dose: Not Given Iron/Minerals/Multivitamins (Theragran M) 1 tab PO DAILY [facility] Last Admin: 09/10/17 09:25 Dose: 1 tab Loperamide HCl (Imodium) 2 mg PO PRN PRN PRN Reason: Diarrhea/Loose Stools Loratadine (Claritin) 10 mg PO DAILYPRN PRN PRN Reason: Sinus Symptoms Lorazepam (Ativan) 1 mg PO Q4H PRN PRN Reason: Anxiety/Agitation Last Admin: 09/09/17 01:25 Dose: 1 mg Lorazepam (Ativan) 1 mg SLOW IVP Q4H PRN PRN Reason: Anxiety/Agitation Magnesium Hydroxide (Milk Of Magnesium) 30 ml PO DAILYPRN PRN PRN Reason: Constipation Mineral Oil/White Petrolatum (Eucerin Cream) 0 gm TOP BIDPRN PRN PRN Reason: Dry Skin Morphine Sulfate (Morphine) 4 mg SLOW IVP Q4H PRN PRN Reason: Pain Last Admin: 09/09/17 08:30 Dose: 4 mg Nicotine (Nicoderm Patch) 21 mg TD DAILY [facility] Last Admin: 09/10/17 09:25 Dose: Not Given Olanzapine (Zyprexa) 20 mg PO HS [facility] Last Admin: 09/09/17 08:21 Dose: 20 mg Ondansetron HCl (Zofran Odt) 4 mg PO Q6H PRN PRN Reason: Nausea/Vomiting Ondansetron HCl (Zofran) 4 mg IVP Q6H PRN PRN Reason: Nausea/Vomiting Phenol (Chloraseptic [place] 180 Ml Bot) 0 ml PO PRN PRN PRN Reason: Sore Throat Last Admin: 09/08/17 09:20 Dose: 1 spr Senna (Senokot) 2 tab PO HSPRN PRN PRN Reason: Constipation Sodium Chloride ([place] Nasal [place] 0.65%) 0 ml EA NARE QIDPRN PRN PRN Reason: Nasal Congestion Sodium Chloride (Flush - Normal Saline) 10 ml IVF Q12HR [facility] Last Admin: 09/10/17 09:25 Dose: Not Given Sodium Chloride (Flush - Normal Saline) 10 ml IVF PRN PRN PRN Reason: Saline Flush Thiamine HCl (Thiamine) 100 mg PO DAILY [facility] Last Admin: 09/10/17 09:25 Dose: 100 mg
[2017-09-10 16:16] VITALS: BP 146/81; TEMP 97.9
== END 2017-09-10 17:20 | disposition home or self-care (01) | DRG 439 ==
LOC: ERS 17:48 → T4-B 20:26
PROVIDERS: ADMIT Internal Medicine; ATTEND Internal Medicine
DX: K85.20 Alcohol induced acute pancreatitis without necrosis or infection (principal); E87.1 Hypo-osmolality and hyponatremia; E87.6 Hypokalemia; F10.10 Alcohol abuse, uncomplicated; B18.2 Chronic viral hepatitis C; F17.210 Nicotine dependence, cigarettes, uncomplicated; D69.6 Thrombocytopenia, unspecified; F41.9 Anxiety disorder, unspecified; F32.9 Major depressive disorder, single episode, unspecified; D75.89 Other specified diseases of blood and blood-forming organs; E66.9 Obesity, unspecified; Z68.34 Body mass index [BMI] 34.0-34.9, adult; F19.10 Other psychoactive substance abuse, uncomplicated; Z82.49 Family history of ischemic heart disease and other diseases of the circulatory system; Z87.39 Personal history of other diseases of the musculoskeletal system and connective tissue; Z79.899 Other long term (current) drug therapy
CPT/HCPCS: 36415; 36416; 74022; 76705; 80053; 81003; 81015; 82550; 82553; 83690; 83735; 84100; 84484; 85025; 86140; 87081; 87430; 93005; 96361; 96374; 96376; 99406; A4216; J0360; J2270; J3411; J3480; J7042; J7050; Q0162; S0028

== ENCOUNTER 2020-05-19 11:47 | Emergency (ER) | payer OTHER ==
[2020-05-19] MEDS ORDERED: Ibuprofen 800 MG TAB ONE (12:22)
--- NOTE | 2020-05-22 17:34 | EKG ---
Test Reason : Blood Pressure : / mmHG Vent. Rate : 080 BPM Atrial Rate : 080 BPM P-R Int : 146 ms QRS Dur : 106 ms QT Int : 428 ms P-R-T Axes : 062 -44 000 degrees QTc Int : 493 ms Normal sinus rhythm Possible Left atrial enlargement Left axis deviation Prolonged QT Abnormal ECG Confirmed by SHELL MCKEON, PARAM ([id number]), scientific editor YAMILKA HAWK ([id number]) on 05/22/2020 5:33:49 PM Referred By: Confirmed By:PARAM GOFF MD
== END 2020-05-19 12:50 | disposition home or self-care (01) ==
LOC: ERS 11:47
DX: F43.20 Adjustment disorder, unspecified (principal); F68.10 Factitious disorder imposed on self, unspecified; S00.31XA Abrasion of nose, initial encounter; F17.210 Nicotine dependence, cigarettes, uncomplicated
CPT/HCPCS: 93005

== ENCOUNTER 2022-03-27 13:01 | Emergency (ER) | payer OTHER | END 2022-03-27 14:48 | disposition home or self-care (01) | LOC: ERS 13:01 | DX: M25.561 Pain in right knee (principal); F17.210 Nicotine dependence, cigarettes, uncomplicated ==